=== PATIENT | female | born 1950 | race Asian ===

== ENCOUNTER → 2016-10-30 | Outpatient (CLI) | payer MEDICARE, OTHER | LOC: RAD 13:10 | PROVIDERS: ATTEND Podiatrist Foot & Ankle Surgery | DX: Q72.819 Congenital shortening of unspecified lower limb (principal) | CPT/HCPCS: 77073 ==

== ENCOUNTER 2018-02-16 10:19 | Day surgery (SDC) | payer MEDICARE, OTHER ==
[~2018-02-16 10:19] MED LIST: PROPOFOL INJ 200 MG/20 ML VIAL IV ONE
[2018-02-16 12:07] VITALS: BP 120/54
--- NOTE | 2018-02-16 12:17 | Operative Report ---
Operative Report DATE OF SURGERY: 02/16/18 Operative Report: The risks benefits and alternatives of the procedure explained to the patient in detail and informed consent is obtained.A GIF Olympus video scope was inserted into the patient's mouth and hypopharynx, the esophagus is identified intubated and insufflated, the scope was then advanced through the esophagus stomach and duodenum, retroflexion maneuver is done, the esophagus stomach and first and second portions of the duodenum examined PREOPERATIVE DIAGNOSIS: Dysphagia POSTOPERATIVE DIAGNOSIS: Gastritis, duodenitis status post biopsy OPERATION: EGD with biopsy SURGEON: DAMION DRAKE ANESTHESIA: LMAC TISSUE REMOVED OR ALTERED: As noted above. COMPLICATIONS: None. ESTIMATED BLOOD LOSS: None. INTRAOPERATIVE FINDINGS: As noted above. PROCEDURE: Patient tolerated procedure well. No immediate postprocedure complications are noted. Patient discharged in good condition. Discharge date 02/16/2018. Discharge diet: Regular. Discharge activity: Regular. 2-3 week follow-up to discuss findings. Patient is instructed to call the office or proceed to the emergency room should there be any further problems or questions. We will wait on pathology.
== END 2018-02-16 11:58 | disposition home or self-care (01) ==
LOC: END 10:19
PROVIDERS: ATTEND Internal Medicine Gastroenterology
DX: K29.50 Unspecified chronic gastritis without bleeding (principal); K29.80 Duodenitis without bleeding; J45.909 Unspecified asthma, uncomplicated; M19.90 Unspecified osteoarthritis, unspecified site; E11.9 Type 2 diabetes mellitus without complications; R01.1 Cardiac murmur, unspecified; Z79.899 Other long term (current) drug therapy; Z86.73 Personal history of transient ischemic attack (TIA), and cerebral infarction without residual deficits; Z88.2 Allergy status to sulfonamides; Z88.5 Allergy status to narcotic agent; Z88.6 Allergy status to analgesic agent; Z79.82 Long term (current) use of aspirin; Z79.84 Long term (current) use of oral hypoglycemic drugs
CPT/HCPCS: 43239; 82962; 88305 ×2; J2704; 731